=== PATIENT | male | born 1965 | race Two or more races ===

== ENCOUNTER 2022-09-10 07:05 | Day surgery (SDC) | payer OTHER ==
[2022-09-10] MEDS ORDERED: TYLENOL ARTHRI650 MG PO (10:04)
[2022-09-10] MEDS ORDERED: KETO10TA2 PO (10:04)
[2022-09-10] MEDS ORDERED: TRAMADOL HCL50 MG PO (10:04)
[2022-09-10] MEDS ORDERED: MIRALAX17 GM PO (10:04)
== END 2022-09-10 13:30 | disposition home or self-care (01) ==
LOC: CIR.AMB 07:05
PROVIDERS: ATTEND Surgery
DX: K42.0 Umbilical hernia with obstruction, without gangrene (principal); I10 Essential (primary) hypertension; Z20.822 Contact with and (suspected) exposure to COVID-19
CPT/HCPCS: 49594; C1781